=== PATIENT | female | born 1965 | race Caucasian/White ===

== ENCOUNTER 2016-07-31 11:40 | Day surgery (SDC) | payer BC ==
[~2016-07-31] VITALS: Ht 170.2 cm; Wt 95.3 kg
[~2016-07-31 11:40] MED LIST: ATIVAN2 MG PO; CEFDINIR300 M1 PO; CELEXA40 MG PO; CYMBALTA60 MG PO; FAMOTIDINE 20MG20 MG PO; LISINOPRIL 10MG10 MG PO; LORAZEPAM1 MG PO; LORAZEPAM1 MG/TABLE PO; LORAZEPAM2 MG PO; NICOTINE PATCH;21 MG TD; PREDNISONE 20MG20 MG PO; QUETIAPINE FUM100 MG PO; SEROQUEL200 MG PO; TAMIFLU75 MG PO; TRAZODONE 50MG50 MG PO
--- NOTE | 2016-07-31 13:15 | Operative Note ---
Colonoscopy (Amandeep) Procedure date: 07/31/16 Date of : 65 Procedure:Colonoscopy Colonoscopy with cold snare polypectomy Indications: Mrs. Carter is a 51-year-old female who is here for follow-up screening/ surveillance colonoscopy. She had a maternal aunt with colon cancer. Her brother had several colon polyps. The patient's last colonoscopy 6-7 years ago revealed polyps. The patient does have intermittent functional diarrhea. She reports no rectal bleeding, abdominal pain, weight loss or change in her bowel habits. Performing Provider: Maximino Bernstein MD Referrring Provider: Cas Miner M.D. Sedation: MAC sedation Procedure: Prior to the procedure, a history and physical exam was performed, and patient medications and allergies were reviewed. The risks and benefits of the procedure and the sedation options and risks were discussed with the patient. All questions were answered and informed consent was obtained. Patient identification and proposed procedure were verified by the physician and the nurse. The patient was placed in a left lateral decubitus position. Throughout the procedure, the patient's blood pressure, pulse, and oxygen saturations were monitored continuously. Findings: On digital rectal examination there was normal rectal tone. There were no external hemorrhoids. The colonoscope was introduced through the anal canal to the rectum and advanced to the cecum. The ileocecal valve and appendiceal orifice were identified. The scope was advanced a short distance into the ileum which appeared grossly normal. The scope was then withdrawn into the colon. There were 3 colon polyps identified in the descending 3. These ranged in size from 4-6 mm and were all removed via cold snare polypectomy. There were very mildly scattered diverticuli throughout the descending and sigmoid colon (LEFT colon). The rectum itself was normal. Upon retroflexion within the rectum there were grade 1 internal hemorrhoids. Impressions: 1. Diminutive colonic polyps 3 2. Mild left-sided diverticulosis 3. Grade 1 internal hemorrhoids Recommendations: I will follow up the polyp pathology and recommend repeat colonoscopy again in 5 years based upon the polyp histology. I would encourage probiotic and fiber bulk supplementation on a long-term daily maintenance basis. Complications: None EBL (ml): 0 at 1314
[2016-07-31 15:53] VITALS: BP 100/68
--- NOTE | 2016-07-31 15:54 | Anesthesia Record ---
Anesthesia Record Part I Total IV fluids: 400 EBL (ml): 0 Urine Output: 0 B/P: 100/68 % SaO2: 95 Pulse: 73 Resps: 16 Temp: 97.5 Patient is: Drowsy, Stable Stable to PACU at: 1313 (sds) at 1553
--- NOTE | 2016-08-24 10:23 | Anesthesia Record ---
Anesthesia Record Part II Discharge time: 1313 Destination: Same day surgery PACU nurse assessment review? Yes Patient is: Stable Anesthesia complications? No at 1029
== END 2016-07-31 14:00 | disposition home or self-care (01) ==
LOC: SDC 11:40
PROVIDERS: Internal Medicine Gastroenterology
PROC: 0DBM8ZX Excision of Descending Colon, Via Natural or Artificial Opening Endoscopic, Diagnostic (ICD-10-PCS; principal; 2016-07-31 12:30)
DX: D12.4 Benign neoplasm of descending colon (principal); K57.30 Diverticulosis of large intestine without perforation or abscess without bleeding; K64.0 First degree hemorrhoids